=== PATIENT | female | born 1955 | race Caucasian/White ===

== ENCOUNTER 2019-04-14 15:45 | Emergency (ER) | payer MEDICARE, BC ==
[2019-04-14 18:07] VITALS: BP 160/79
--- NOTE | 2019-04-14 18:28 | UC ---
Throat Pain/Nasal [place] HPI - HPI Summary HPI Summary: 63-year-old female presents with complaints of one and half weeks of nasal congestion, sinus pressure, and postnasal drip. States over the past 3 days she is started having increasingly worse right ear pain and fullness. Denies fever, chills, ear drainage, tinnitus, vertigo, sore throat, or cough. - History of Current Complaint Chief Complaint: UCEar Stated Complaint: RT EAR PAIN Time Seen by Provider: 04/14/19 18:16 Hx Obtained From: Patient Pain Intensity: 6 - Allergies/Home Medications Allergies/Adverse Reactions: Allergies Allergy/AdvReac Type Severity Reaction Status Date / Time gluten Allergy Blisters Verified 04/14/19 18:13 Sulfa (Sulfonamide AdvReac Congestion Verified 04/14/19 18:09 Antibiotics) Home Medications: Home Medications Atorvastatin* [Lipitor*] 20 mg PO QPM 04/14/19 [History Confirmed 04/14/19] Furosemide TAB* [Lasix TAB*] 20 mg PO DAILY 04/14/19 [History Confirmed 04/14/19 ] Lisinopril TAB* [Prinivil TAB*] 20 mg PO DAILY 04/14/19 [History Confirmed 04/14] Potassium Chloride 20 units PO DAILY 04/14/19 [History Confirmed 04/14/19] dilTIAZem HCl [Dilt-Xr] 240 mg PO DAILY 04/14/19 [History Confirmed 04/14/19] PMH/Surg Hx/FS Hx/Imm Hx Endocrine History: Dyslipidemia Cardiovascular History: Hypertension - Surgical History Surgical History: None - Family History Known Family History: Positive: Unknown - Social History Occupation: Employed Full-time Lives: With Family Alcohol Use: Daily Alcohol Amount: wine with dinner Substance Use Type: None Smoking Status (MU): Never Smoked Tobacco - Immunization History Most Recent Tetanus Shot: unknown Review of Systems All Other Systems Reviewed And Are Negative: Yes Constitutional: Negative: Fever, Chills Eyes: Negative: Drainage, Eye Redness ENT: Positive: Ear Ache, Nasal Discharge, Sinus Congestion, Sinus Pain/ Tenderness. Negative: Sore Throat Respiratory: Negative: Shortness Of Breath, Cough Cardiovascular: Negative: Palpitations, Chest Pain Gastrointestinal: Positive: Negative Genitourinary: Positive: Negative Musculoskeletal: Positive: Negative Neurological: Positive: Negative Is Patient Immunocompromised?: No Physical Exam - Summary Physical Exam Summary: GENERAL APPEARANCE: Well developed, well nourished, alert and cooperative, and appears to be in no acute distress. EYES: Conjunctiva clear. No drainage. EARS: External auditory canals with cerumen impaction. NOSE: Moderate nasal congestion. No nasal discharge. Right maxillary sinus tenderness. THROAT: Pharyngeal cobblestoning. No tonsilar inflammation, swelling, exudate, or lesions. Uvula midline. NECK: Neck supple, non-tender without lymphadenopathy. CARDIAC: Normal S1 and S2. No S3, S4 or murmurs. Rhythm is regular. There is no peripheral edema, cyanosis or pallor. Extremities are warm and well perfused. Capillary refill is less than 2 seconds. Peripheral pulses intact. LUNGS: Clear to auscultation without rales, rhonchi, wheezing or diminished breath sounds. ABDOMEN: Positive bowel sounds. Soft, nondistended, nontender. No guarding or rebound. No masses or hepatosplenomegally. SKIN: Skin normal color, texture and turgor with no lesions or eruptions. Triage Information Reviewed: Yes Vital Signs: Initial Vital Signs Temp 211.3 F 04/14/19 18:01 Pulse 90 04/14/19 18:01 Resp 18 04/14/19 18:01 BP 160/79 04/14/19 18:01 Pulse Ox 100 04/14/19 18:01 Vital Signs Reviewed: Yes Re-Evaluation - Re-Evaluation First Eval Re-Evaluation Time: 19:15 Change: Improved Comment: Post-irrigation bilateral external auditory canals clear. Intact, opaque left TM with good cone of light. Right TM intact, dull, and erythematous with effusion. Throat Pain/Nasal Course/Dx - Course Course Of Treatment: 63-year-old female presents with complaints of one and half weeks of nasal congestion, sinus pressure, and postnasal drip. States over the past 3 days she is started having increasingly worse right ear pain and fullness. Denies fever, chills, ear drainage, tinnitus, vertigo, sore throat, or cough. Afebrile. Hypertensive and was vital signs stable. Patient had moderate nasal congestion, right maxillary sinus tenderness, pharyngeal cobblestoning without tonsillar swelling or exudate, no cervical lymphadenopathy, bilateral external auditory canals had cerumen impactions, and remainder of exam was unremarkable. The RN irrigated the bilateral external auditory canals and removed a large amount of cerumen. Post-irrigation the external auditory canals were noted to be clear, the left TM was intact, opaque, with good cone of light while the right TM was intact, dull, and erythematous with an effusion. We'll treat the patient for an acute sinusitis and right otitis media with Augmentin 875 mg twice a day 10 days as well as symptomatic treatment. She is to follow-up with her primary care provider in 5 days if symptoms do not improve. It is motoric evidence and warning symptoms were reviewed with the patient. Verbalizes understanding and agrees with plan of care. - Differential Dx/Diagnosis Differential Diagnosis/HQI/PQRI: Pharyngitis, Sinusitis, URI Provider Diagnosis: Acute sinusitis, Right otitis media Discharge ED - Sign-Out/Discharge Documenting (check all that apply): Patient Departure All imaging exams completed and their final reports reviewed: No Studies - Discharge Plan Condition: Stable Disposition: HOME Prescriptions: Amoxicillin/Clavulanate TAB* [Augmentin TAB 875*] 875 mg PO BID #20 tab Patient Education Materials: Sinusitis (ED), Ear Infection (ED) Referrals: Deanne Mackey MD [Primary Care Provider] - 5 Days Additional Instructions: Your history and exam are consistent with a sinus infection and right ear infection. We will start you on an antibiotic to treat the infection. Take Augmentin 875 mg 1 tablet twice daily for 10 days. Take with food to avoid upset stomach. Be sure to take the entire course even if feeling better. Drink plenty of fluids to avoid dehydration especially if you are running any fever. Use a saline rinse at least twice a day to help thin secretions and promote drainage of the sinuses. Take over the counter acetaminophen (Tylenol) or ibuprofen (Advil, Motrin) according to directions as needed for pain or fever. Follow up with your primary care provider in 5 days if symptoms persist. Seek immediate medical attention in the emergency room if you have fever greater than 100.5 F despite taking acetaminophen or ibuprofen, have chest pain , difficulty breathing, are unable to swallow, or have any worsening of symptoms. - Billing Disposition and Condition Condition: STABLE Disposition: Home - Attestation Statements Provider Attestation: This patient was not seen by me. I was available for consult. Chart reviewed. YASH
== END 2019-04-14 19:25 | disposition home or self-care (01) ==
LOC: UCCORT 15:45
DX: J01.90 Acute sinusitis, unspecified (principal); H66.91 Otitis media, unspecified, right ear; H61.23 Impacted cerumen, bilateral; E78.5 Hyperlipidemia, unspecified; I10 Essential (primary) hypertension; Z88.2 Allergy status to sulfonamides
CPT/HCPCS: 99203; G0463

== ENCOUNTER 2019-04-29 11:08 | Emergency (ER) | payer MEDICARE, BC ==
[2019-04-29 11:31] VITALS: BP 137/71
--- NOTE | 2019-04-29 11:47 | UC ---
Complaint Female HPI - HPI Summary HPI Summary: 63-year-old female who was seen here on 13 April and treated for a sinus infection. Following that she developed a yeast infection and she took a Diflucan yesterday as well as some internal cream. She states over the past couple of days she has had burning on urination, frequency and today had blood in her urine. - History Of Current Complaint Chief Complaint: UCGU Stated Complaint: URINARY Time Seen by Provider: 04/29/19 11:25 Hx Obtained From: Patient ?: No Onset/Duration: Gradual Onset Timing: Intermittent Severity Initially: Mild Severity Currently: Moderate Pain Intensity: 6 Character: Burning Aggravating Factor(s): Urination Alleviating Factor(s): Nothing Associated Signs And Symptoms: Positive: Negative - Allergies/Home Medications Allergies/Adverse Reactions: Allergies Allergy/AdvReac Type Severity Reaction Status Date / Time gluten Allergy Blisters Verified 04/29/19 11:31 Sulfa (Sulfonamide AdvReac Congestion Verified 04/29/19 11:31 Antibiotics) steroid Allergy Tachycardia Uncoded 04/29/19 11:31 PMH/Surg Hx/FS Hx/Imm Hx Previously Healthy: Yes Endocrine History: Dyslipidemia - Surgical History Surgical History: None - Family History Known Family History: Positive: Unknown - Social History Occupation: Employed Full-time Lives: With Family Alcohol Use: Daily Alcohol Amount: wine with dinner Substance Use Type: None Smoking Status (MU): Never Smoked Tobacco - Immunization History Most Recent Tetanus Shot: unknown Review of Systems All Other Systems Reviewed And Are Negative: Yes Genitourinary: Positive: Dysuria, Hematuria, Frequency, Urgency Is Patient Immunocompromised?: No Physical Exam Triage Information Reviewed: Yes Appearance: Well-Appearing, No Pain Distress, Well-Nourished Vital Signs: Initial Vital Signs Temp 98.4 F 04/29/19 11:26 Pulse 94 04/29/19 11:26 Resp 18 04/29/19 11:26 BP 137/71 04/29/19 11:26 Pulse Ox 97 04/29/19 11:26 Vital Signs Reviewed: Yes Respiratory: Positive: Lungs clear, Normal breath sounds, No respiratory distress, No accessory muscle use Cardiovascular: Positive: RRR, No Murmur, Pulses Normal, Brisk Capillary Refill Abdomen Description: Positive: Nontender, No Organomegaly, Soft Bowel Sounds: Positive: Present Musculoskeletal Exam: Normal Neurological Exam: Normal Psychological Exam: Normal Skin Exam: Normal Complaint Female Dx - Course Course Of Treatment: Urinalysis: Positive for leukocytes, hematuria. The patient is comfortable here. I am going to give her another Diflucan to take in approximately 5-7 days from now because of her high risk of a yeast infection with antibiotics. I'm also treating her with cephalexin 500 mg by mouth 3 times a day 10 days. She is to follow-up with her primary care provider as needed or go to the emergency room for any worsening symptoms including fever, chills, back pain and vomiting and unable keep medicine down. - Differential Dx/Diagnosis Provider Diagnosis: UTI (urinary tract infection) Discharge ED - Sign-Out/Discharge Documenting (check all that apply): Patient Departure All imaging exams completed and their final reports reviewed: No Studies - Discharge Plan Condition: Fair Disposition: HOME Prescriptions: Cephalexin CAP* [Keflex 500 CAP*] 500 mg PO TID 10 Days #30 cap Fluconazole 150 MG TAB* [Diflucan 150 MG TAB*] 150 mg PO ONCE 1 Days #1 tablet Phenazopyridine TAB* [Pyridium 100 mg TAB*] 100 mg PO TID PRN #9 tab PRN Reason: Spasms Patient Education Materials: Urinary Tract Infection in Older Adults (ED) Referrals: Deanne Mackey MD [Primary Care Provider] - Additional Instructions: Increase fluids, take the Diflucan in about 5-7 days from now if you develop symptoms of yeast infection. Go to the emergency room if you develop fever, chills, back pain and vomiting unable keep the medicine down. You may want to follow-up with your primary care provider after about 10 days to make sure the urinary tract infection has cleared. You should only need to make a nursing appointment to have that rechecked. - Billing Disposition and Condition Condition: FAIR Disposition: Home
--- NOTE | 2019-05-02 07:41 | UC ---
- Progress Note Progress Note: urine: + E coli +klebsiella pt on cephalexin - E coli sensitive to cephalosporin klebsiella pending no change jeff 05/02/19 Course/Dx - Diagnoses Provider Diagnoses: UTI (urinary tract infection) Discharge ED - Sign-Out/Discharge Documenting (check all that apply): Post-Discharge Follow Up All imaging exams completed and their final reports reviewed: No Studies - Discharge Plan Condition: Fair Disposition: HOME Prescriptions: Cephalexin CAP* [Keflex 500 CAP*] 500 mg PO TID 10 Days #30 cap Fluconazole 150 MG TAB* [Diflucan 150 MG TAB*] 150 mg PO ONCE 1 Days #1 tablet Phenazopyridine TAB* [Pyridium 100 mg TAB*] 100 mg PO TID PRN #9 tab PRN Reason: Spasms Patient Education Materials: Urinary Tract Infection in Older Adults (ED) Referrals: Deanne Mackey MD [Primary Care Provider] - Additional Instructions: Increase fluids, take the Diflucan in about 5-7 days from now if you develop symptoms of yeast infection. Go to the emergency room if you develop fever, chills, back pain and vomiting unable keep the medicine down. You may want to follow-up with your primary care provider after about 10 days to make sure the urinary tract infection has cleared. You should only need to make a nursing appointment to have that rechecked. - Billing Disposition and Condition Condition: FAIR Disposition: Home
== END 2019-04-29 11:55 | disposition home or self-care (01) ==
LOC: UCCORT 11:08
DX: N39.0 Urinary tract infection, site not specified (principal); R31.9 Hematuria, unspecified; Z91.018 Allergy to other foods; Z88.2 Allergy status to sulfonamides; Z88.8 Allergy status to other drugs, medicaments and biological substances
CPT/HCPCS: 81003; 87077; 87086; 87186; 99212; G0463